=== PATIENT | female | born 1970 | race Two or more races ===

== ENCOUNTER 2021-03-19 13:25 | Emergency (ER) | payer OTHER ==
[~2021-03-19] VITALS: Ht 170.2 cm; Wt 92.1 kg
== END 2021-03-19 17:00 | disposition home or self-care (01) ==
LOC: ER 13:25
DX: S91.011A Laceration without foreign body, right ankle, initial encounter (principal); Y92.832 Beach as the place of occurrence of the external cause; X58.XXXA Exposure to other specified factors, initial encounter